=== PATIENT | male | born 1990 | race Caucasian/White ===

== ENCOUNTER 2019-08-26 16:35 | Emergency (ER) | payer OTHER | END 2019-08-26 17:28 | disposition home or self-care (01) | LOC: ERS 16:35 | DX: S61.512A Laceration without foreign body of left wrist, initial encounter (principal); L03.114 Cellulitis of left upper limb; F17.210 Nicotine dependence, cigarettes, uncomplicated; W45.8XXA Other foreign body or object entering through skin, initial encounter | CPT/HCPCS: 12001 ==

== ENCOUNTER 2025-02-02 01:24 | Emergency (ER) | payer OTHER, SELFPAY ==
[2025-02-02] MEDS ORDERED: Ketorolac Tromethamine 30 MG (1 mL) VIAL ONE (02:01)
== END 2025-02-02 02:18 | disposition home or self-care (01) ==
LOC: ERS 01:24
DX: L03.115 Cellulitis of right lower limb (principal); F17.210 Nicotine dependence, cigarettes, uncomplicated
CPT/HCPCS: 96372; 99283; J1885